=== PATIENT | male | born 1965 | race American Indian/Alaskan Native ===

== ENCOUNTER 2018-07-08 09:40 | Emergency (ER) | payer SELFPAY ==
[2018-07-08 09:48] VITALS: BP 142/108
--- NOTE | 2018-07-08 10:24 | Emergency Department Report ---
<MARVINViolaONIEL Camara - Last Filed: 07/08/18 10:17> ED Headache HPI - General Chief Complaint: Headache Stated Complaint: HEADACHE Time Seen by Provider: 07/08/18 09:53 Source: patient Exam Limitations: no limitations - History of Present Illness Initial Comments: 53-year-old male with a history of migraine headaches presents with headache, he denies any trauma, falls or injuries to the head. Timing/Duration: constant Quality: mild, achy, throbbing Head Injury Location: frontal, temporal Recent Head Trauma: no recent headache/trauma, chronic headaches Modifying Factors: improves with: medication Associated Symptoms: denies: confusion, fatigue, facial pain, loss of consciousness, nausea/vomiting, nasal congestion, stiff neck Allergies/Adverse Reactions: Allergies No Known Allergies Allergy (Unverified 07/08/18 09:44) Home Medications: Ambulatory Orders Butalb/Acetamin/Caff 50-325-40 [Fioricet] 1 tab PO Q6HR PRN #10 tab 07/08/18 ED Review of Systems Comment: All other systems reviewed and negative ED Past Medical Hx - Past Medical History Hx Headaches / Migraines: Yes Hx Seizures: Yes Hx Asthma: Yes Additional medical history: CHRONIC BILAT FOOT PAIN - Social History Smoking Status: Current Every Day Smoker Substance Use Type: Alcohol - Medications Home Medications: Home Medications Medication Instructions Recorded Confirmed Last Taken Type Butalb/Acetamin/Caff 50-325-40 1 tab PO Q6HR PRN #10 tab 07/08/18 Unknown Rx [Fioricet] ED Physical Exam - General Limitations: No Limitations General appearance: alert, in no apparent distress - Head Head exam: Present: atraumatic, normocephalic - Eye Eye exam: Present: normal appearance - ENT ENT exam: Present: mucous membranes moist - Neck Neck exam: Present: normal inspection - Respiratory Respiratory exam: Present: normal lung sounds bilaterally. Absent: respiratory distress - Cardiovascular Cardiovascular Exam: Present: regular rate, normal rhythm. Absent: systolic murmur, diastolic murmur, rubs, gallop - GI/Abdominal GI/Abdominal exam: Present: soft, normal bowel sounds - Rectal Rectal exam: Present: deferred - Extremities Exam Extremities exam: Present: normal inspection - Back Exam Back exam: Present: normal inspection - Neurological Exam Neurological exam: Present: alert, oriented X3, normal gait (with walking stick). Absent: reflexes normal - Expanded Neurological Exam Expanded Patient oriented to: Present: person, place, time Cranial nerves: EOM's Intact: Normal, Facial Sensation: Normal Cerebellar function: Finger to Nose: Normal Sensory exam: Upper Extremity Light Touch: Normal, Lower Extremity Light Touch: Normal Motor strength exam: RUE: 5 Best Eye Response ([place]): (4) open spontaneously Best Motor Response ([place]): (6) obeys commands Best Verbal Response ([place]): (5) oriented [place] Total: 15 - Psychiatric Psychiatric exam: Present: normal affect, normal mood - Skin Skin exam: Present: warm, dry, intact, normal color. Absent: rash ED Medical Decision Making - Radiology Data Radiology results: report reviewed, image reviewed Referring Physician: PEDRO WONG Patient Name: ANTIONETTE WILSON Date of : 1965 Sex: Male Report Date: 2018-07-08 Report Status: [place] [address] Cat Scan Report Signed Patient: ANTIONETTE WILSON MR#: [id number] : 1965 Acct:[id number] Age/Sex: 53 / M ADM Date: 07/08/18 Loc: ED Attending Dr: Ordering Physician: NADEEM FERNANDEZ Date of Service: 07/08/18 Procedure(s): CT head/brain wo con Accession Number(s): [id number] cc: NADEEM FERNANDEZ CT HEAD WITHOUT CONTRAST: HISTORY: Headache. TECHNIQUE: Sequential CT images without contrast. FINDINGS: Images obtained show bilateral prominence of the sulci and ventricles. There are no abnormal intra- or extra-axial blood or fluid collections. There are no focal masses or evidence of mass effect. The mina white matter differentiation appears within normal limits. Regions of periventricular decreased attenuation are consistent with microangiopathic ischemic disease. The posterior fossa structures including the fourth ventricle, cerebellum, and brainstem appear normal. IMPRESSION: Evidence of atrophy and microangiopathic ischemic disease. No acute intracranial process noted. Transcribed By: TTR Dictated By: BITA VANCE JR, MD Electronically Authenticated By: BITA VANCE JR, MD Signed Date/Time: 07/08/18 1040 - Medical Decision Making 53-year-old male presents with a migraine headache CT scan shows no abnormal findings Patient received Toradol for pain in the ED Discussed the follow up with primary care physician. Patient is in no acute distress. ED Disposition Clinical Impression: Migraine headache without aura Qualifiers: Status migrainosus presence: without status migrainosus Intractability: not intractable Qualified Code(s): G43.009 - Migraine without aura, not intractable, without status migrainosus Disposition: DC- TO HOME OR SELFCARE Is pt being admited?: No Does the pt Need Aspirin: No Condition: Stable Instructions: Migraine Headache (ED) Additional Instructions: Make sure to follow up with the primary care physician as discussed. Take all your medications as you've been prescribed. If you have any worsening symptoms or develop new symptoms please return to ED immediately. Prescriptions: Butalb/Acetamin/Caff 50-325-40 [Fioricet] 1 tab PO Q6HR PRN #10 tab PRN Reason: Headache Referrals: MATTIE KRAUSE MD [Primary Care Provider] - 3-5 Days Forms: Work/School Release Form(ED) Time of Disposition: 10:54 <JIA PETE - Last Filed: 07/08/18 11:11> ED Review of Systems ROS: Stated complaint: HEADACHE Other details as noted in HPI ED Course Vital Signs 07/08/18 09:46 Temperature 97.8 F Pulse Rate 70 Respiratory 18 Rate Blood Pressure 142/108 [Right] O2 Sat by Pulse 100 Oximetry ED Medical Decision Making - Medical Decision Making Patient is a 53-year-old male who is presenting with headache. [id number] was done by me. Patient does show some drug-seeking type behavior. Patient states he normally goes to [place] for his care. Patient has CT is within normal limits be discharged home. Critical care attestation.: If time is entered above; I have spent that time in minutes in the direct care of this critically ill patient, excluding procedure time.
[2018-07-08] MEDS ORDERED: TORADOL IM ONE (10:27)
--- NOTE | 2018-07-08 10:44 | Cat Scan Report ---
CT HEAD WITHOUT CONTRAST: HISTORY: Headache. TECHNIQUE: Sequential CT images without contrast. FINDINGS: Images obtained show bilateral prominence of the sulci and ventricles. There are no abnormal intra- or extra-axial blood or fluid collections. There are no focal masses or evidence of mass effect. The mina white matter differentiation appears within normal limits. Regions of periventricular decreased attenuation are consistent with microangiopathic ischemic disease. The posterior fossa structures including the fourth ventricle, cerebellum, and brainstem appear normal. IMPRESSION: Evidence of atrophy and microangiopathic ischemic disease. No acute intracranial process noted.
== END 2018-07-08 11:15 | disposition home or self-care (01) ==
LOC: ED 09:40
DX: G43.009 Migraine without aura, not intractable, without status migrainosus (principal); J45.909 Unspecified asthma, uncomplicated; F17.200 Nicotine dependence, unspecified, uncomplicated
CPT/HCPCS: 70450; 96372; 99284; J1885

== ENCOUNTER 2019-07-07 09:34 | Emergency (ER) | payer SELFPAY ==
[2019-07-07] MEDS ORDERED: KETOROLAC 30 MG/1 ML INJ IM ONE (14:03)
[2019-07-07] MEDS ORDERED: ONDANSETRON 4 MG ODT TAB PO ONE (14:03)
--- NOTE | 2019-07-07 14:05 | Emergency Department Report ---
{null, ED Headache HPI - General Chief Complaint: Headache Stated Complaint: MIGRAINES Time Seen by Provider: 07/07/19 12:46 Source: patient, RN notes reviewed Exam Limitations: no limitations - History of Present Illness Initial Comments: This is a 54-year-old -[place] male who presents to the emergency room with a headache. Past medical history of migraines, seizure, and asthma. Patient reports pain is worse with sitting up or standing. Denies taking any medication prior to arrival. States "this is my normal headache". Denies visual changes, fever, chills, weakness, numbness or tingling. Timing/Duration: 24 hours Quality: severe, throbbing Head Injury Location: global Recent Head Trauma: no recent headache/trauma, frequent headaches Modifying Factors: improves with: movement Associated Symptoms: denies symptoms Allergies/Adverse Reactions: Allergies No Known Allergies Allergy (Unverified 07/08/18 09:44) Home Medications: Ambulatory Orders Butalb/Acetamin/Caff 50-325-40 [Fioricet 50-325-40] 1 tab PO Q6HR PRN #10 tab 07/08/18 Butalb/Acetaminophen/Caffeine [Fioricet 50-300-40 mg CAP] 1 cap PO Q8HR PRN #12 cap 07/07/19 ED Review of Systems ROS: Stated complaint: MIGRAINES Other details as noted in HPI Constitutional: denies: chills, fever Respiratory: denies: cough, shortness of breath, wheezing Cardiovascular: denies: chest pain, palpitations Gastrointestinal: denies: abdominal pain, nausea, diarrhea Musculoskeletal: denies: back pain, joint swelling, arthralgia Skin: denies: rash, lesions Neurological: headache. denies: weakness, paresthesias Psychiatric: denies: anxiety, depression ED Past Medical Hx - Past Medical History Hx Headaches / Migraines: Yes Hx Seizures: Yes Hx Asthma: Yes Additional medical history: CHRONIC BILAT FOOT PAIN - Surgical History Past Surgical History?: No - Social History Smoking Status: Never Smoker - Medications Home Medications: Home Medications Medication Instructions Recorded Confirmed Last Taken Type Butalb/Acetamin/Caff 50-325-40 1 tab PO Q6HR PRN #10 tab 07/08/18 Unknown Rx [Fioricet 50-325-40] Butalb/Acetaminophen/Caffeine 1 cap PO Q8HR PRN #12 cap 07/07/19 Unknown Rx [Fioricet 50-300-40 mg CAP] ED Physical Exam - General Limitations: No Limitations General appearance: alert, in no apparent distress - Eye Eye exam: Present: normal appearance - ENT ENT exam: Present: normal orophraynx, mucous membranes moist, TM's normal bilaterally, normal external ear exam - Neck Neck exam: Present: normal inspection - Respiratory Respiratory exam: Present: normal lung sounds bilaterally. Absent: respiratory distress - Cardiovascular Cardiovascular Exam: Present: regular rate, normal rhythm. Absent: systolic murmur, diastolic murmur, rubs, gallop - GI/Abdominal GI/Abdominal exam: Present: soft, normal bowel sounds. Absent: distended, tenderness, guarding, rebound, rigid - Extremities Exam Extremities exam: Present: normal inspection - Neurological Exam Neurological exam: Present: alert, oriented X3 - Psychiatric Psychiatric exam: Present: normal affect, normal mood - Skin Skin exam: Present: warm, dry, intact, normal color. Absent: rash ED Course Vital Signs 07/07/19 09:45 Temperature 97.5 F L Pulse Rate 74 Respiratory 18 Rate Blood Pressure 151/114 [Right] O2 Sat by Pulse 98 Oximetry ED Medical Decision Making - Medical Decision Making This is a 54 y.o. male that presents with migraine headache. History of migraines, seizures, and asthma. Patient is stable and was examined by me. No neuro symptoms. Given toradol and Zofran. Monitored for 2 hours. Patient reports improved symptoms. Start Fioricet. No further questions noted by the patient. Follow-up with primary care doctor. Referral to neurology as needed for worsening symptoms. Discharged home in stable condition. Follow up with PCP in 24-72 hours. Critical care attestation.: If time is entered above; I have spent that time in minutes in the direct care of this critically ill patient, excluding procedure time. ED Disposition Clinical Impression: Migraine Qualifiers: Migraine type: without aura Status migrainosus presence: with status migrainosus Intractability: not intractable Qualified Code(s): G43.001 - Migraine without aura, not intractable, with status migrainosus Disposition: - TO HOME OR SELFCARE Is pt being admited?: No Condition: Stable Instructions: Migraine Headache (ED) Additional Instructions: Take medication at start of headache. Moderate caffeine intake. Eat at scheduled times or 3 meals a day with snacks. Follow up with primary care provider in 24-72 hours. Prescriptions: Butalb/Acetaminophen/Caffeine [Fioricet 50-300-40 mg CAP] 1 cap PO Q8HR PRN #12 cap PRN Reason: Headache Referrals: [facility] [Outside] - 3-5 Days [facility] [Outside] - 3-5 Days [facility] [Outside] - 3-5 Days [facility] [Provider Group] - 3-5 Days Time of Disposition: 15:03 }
[2019-07-07 16:03] VITALS: BP 135/107
== END 2019-07-07 17:40 | disposition home or self-care (01) ==
LOC: ED 09:34
DX: G43.909 Migraine, unspecified, not intractable, without status migrainosus (principal); R56.9 Unspecified convulsions; J45.909 Unspecified asthma, uncomplicated; Z79.899 Other long term (current) drug therapy
CPT/HCPCS: 96372; 99282; J1885; Q0162

== ENCOUNTER 2020-03-26 20:31 | Emergency (ER) | payer MEDICAID ==
--- NOTE | 2020-03-26 20:49 | Emergency Department Report ---
ED Seizure HPI - General Stated Complaint: SEIZURE Time Seen by Provider: 03/26/20 20:41 Source: patient, EMS, old records reviewed Mode of arrival: Stretcher Limitations: No Limitations - History of Present Illness Initial Comments: Chief complaint: "Seizure" HPI: This is a 54-year-old male with history of seizure, migraine headache and CAD status post CABG who presents with EMS via EMS after 4-minute long witnessed seizure. Patient has mild typical headache. Dull achy global. Patient has frequent headaches. He has had similar headaches. He last took Dilantin 1 to 2 days ago. He ran out of this medication. His brush hand and PCP are located in [place]. He denies any injury from the surgery as a result of the seizure. MD Complaint: seizure -: Sudden, This evening Witnessed:: Yes Trauma: No Seizure History: known seizure disorder Place: home Possible Precipitating Event: medication (Lack of medication) Associated Symptoms: other (Mild headache) Treatments Prior to Arrival: none - Related Data Previous Rx's Medication Instructions Recorded Last Taken Type Butalb/Acetamin/Caff 50-325-40 1 tab PO Q6HR PRN #10 tab 07/08/18 Unknown Rx [Fioricet 50-325-40] Butalb/Acetaminophen/Caffeine 1 cap PO Q8HR PRN #12 cap 07/07/19 Unknown Rx [Fioricet 50-300-40 mg CAP] Phenytoin [Dilantin] 3 tab PO QHS #90 capsule 03/26/20 Unknown Rx Allergies Allergy/AdvReac Type Severity Reaction Status Date / Time No Known Allergies Allergy Verified 03/26/20 20:56 ED Review of Systems ROS: Stated complaint: SEIZURE Other details as noted in HPI Comment: All other systems reviewed and negative Constitutional: denies: fever, malaise Respiratory: denies: cough Cardiovascular: denies: chest pain Gastrointestinal: denies: abdominal pain, nausea, vomiting Neurological: headache. denies: weakness, numbness, paresthesias, confusion ED Past Medical Hx - Past Medical History Previous Medical History?: Yes Hx Headaches / Migraines: Yes Hx Seizures: Yes Hx Asthma: Yes Additional medical history: CHRONIC BILAT FOOT PAIN - Surgical History Past Surgical History?: Yes Additional Surgical History: CABG at [facility] - Social History Smoking Status: Never Smoker - Medications Home Medications: Home Medications Medication Instructions Recorded Confirmed Last Taken Type Butalb/Acetamin/Caff 50-325-40 1 tab PO Q6HR PRN #10 tab 07/08/18 Unknown Rx [Fioricet 50-325-40] Butalb/Acetaminophen/Caffeine 1 cap PO Q8HR PRN #12 cap 07/07/19 Unknown Rx [Fioricet 50-300-40 mg CAP] Phenytoin [Dilantin] 3 tab PO QHS #90 capsule 03/26/20 Unknown Rx ED Physical Exam - General Limitations: No Limitations General appearance: alert, in no apparent distress - Head Head exam: Present: atraumatic, normocephalic - Eye Eye exam: Present: normal appearance - ENT ENT exam: Present: mucous membranes moist - Neck Neck exam: Present: normal inspection, full ROM - Respiratory Respiratory exam: Present: normal lung sounds bilaterally. Absent: respiratory distress, wheezes, rales, rhonchi - Cardiovascular Cardiovascular Exam: Present: regular rate, normal rhythm, normal heart sounds, other (Sternotomy scar present). Absent: systolic murmur, diastolic murmur, rubs, gallop - GI/Abdominal GI/Abdominal exam: Present: soft, normal bowel sounds. Absent: distended, tenderness, guarding, rebound - Rectal Rectal exam: Present: deferred - Extremities Exam Extremities exam: Present: normal inspection - Neurological Exam Neurological exam: Present: alert, oriented X3 - Psychiatric Psychiatric exam: Present: normal affect, normal mood - Skin Skin exam: Present: warm, dry, intact, normal color. Absent: rash ED Course Vital Signs 03/26/20 03/26/20 03/26/20 20:45 20:58 21:03 Temperature 98.7 F Pulse Rate 75 Respiratory 17 18 18 Rate Blood Pressure 127/89 [Left] O2 Sat by Pulse 98 Oximetry 03/26/20 03/26/20 21:58 22:03 Temperature Pulse Rate Respiratory 18 18 Rate Blood Pressure [Left] O2 Sat by Pulse Oximetry ED Medical Decision Making - Medical Decision Making Breakthrough seizure history of seizure disorder. Patient may have missed doses of his medication Dilantin. Patient received IV Keppra load. Observed for 3 hours in the emergency department without change mental status or recurrent seizure. He does not have injury related to seizure. Mild headache typical for patient. History of migraine headaches. Patient was treated for headache in the emergency department with IV and p.o. meds I have prescribed 90-day supply of Dilantin. Critical care attestation.: If time is entered above; I have spent that time in minutes in the direct care of this critically ill patient, excluding procedure time. ED Disposition Clinical Impression: Breakthrough seizure, Seizure disorder Disposition: TO HOME OR SELFCARE Is pt being admited?: No Does the pt Need Aspirin: No Condition: Stable Instructions: Epilepsy, [id number] Prescriptions: Phenytoin [Dilantin] 3 tab PO QHS #90 capsule Referrals: XANDER RAMIREZ MD [Staff Physician] - 3-5 Days
[2020-03-26] MEDS ORDERED: IBUPROFEN 600 MG TAB PO ONE (20:54)
[2020-03-26] MEDS ORDERED: HYDROcodone/ACETAMINOPHEN 5-325 MG TAB PO ONE (20:54)
[2020-03-26] MEDS ORDERED: dexAMETHasone 4 MG/ML VIAL IV ONE (20:54)
[2020-03-26] MEDS ORDERED: levETIRAcetam 1000 MG/NS 0.75% 1,000 MG/100 ML BAG IV ONE (20:54)
[2020-03-26 23:28] VITALS: BP 112/77
== END 2020-03-26 23:20 | disposition home or self-care (01) ==
LOC: ED 20:31
DX: G40.909 Epilepsy, unspecified, not intractable, without status epilepticus (principal); G43.909 Migraine, unspecified, not intractable, without status migrainosus; J45.909 Unspecified asthma, uncomplicated; Z79.899 Other long term (current) drug therapy
CPT/HCPCS: 96374; 96375; 99284; J1100; J1953

== ENCOUNTER 2021-04-17 07:51 | Emergency (ER) | payer MEDICAID ==
[2021-04-17] MEDS ORDERED: SODIUM CHLORIDE 0.9% 1000 ML 1,000 ML IV ONE (08:10)
--- NOTE | 2021-04-17 08:10 | Emergency Department Report ---
ED Seizure HPI - General Stated Complaint: SEIZURE Time Seen by Provider: 04/17/21 08:09 - History of Present Illness Initial Comments: Patient was brought in because of a seizure. EMS transported the patient. Family called in and found the patient seizing. This onset was not witnessed. Total duration of time is unknown. EMS states that the patient quit seizing and seemed to be postictal for them. There was no history of trauma as reported by family per EMS. Patient is on seizure medication. They are uncertain if he is taking it. He has been confused for them. To me, the patient states that he has been taking his medication. He initially states that it was Depakote. He then states that was Dilantin. He cannot be sure which medicine he is on. Patient denies recent head trauma. He has no fevers or chills. There is no cough or congestion. - Related Data Previous Rx's Medication Instructions Recorded Last Taken Type Butalb/Acetamin/Caff 50-325-40 1 tab PO Q6HR PRN #10 tab 07/08/18 Unknown Rx [Fioricet 50-325-40] Butalb/Acetaminophen/Caffeine 1 cap PO Q8HR PRN #12 cap 07/07/19 Unknown Rx [Fioricet 50-300-40 mg CAP] Phenytoin [Dilantin] 3 tab PO QHS #90 capsule 03/26/20 Unknown Rx Allergies Allergy/AdvReac Type Severity Reaction Status Date / Time No Known Allergies Allergy Verified 03/26/20 20:56 ED Review of Systems ROS: Stated complaint: SEIZURE Other details as noted in HPI Comment: All other systems reviewed and negative Constitutional: denies: fever Eyes: denies: vision change ENT: denies: throat pain Respiratory: denies: cough Cardiovascular: denies: chest pain Endocrine: denies: unexplained weight loss Gastrointestinal: denies: abdominal pain Genitourinary: denies: dysuria Musculoskeletal: denies: back pain Skin: denies: rash Neurological: as per HPI Hematological/Lymphatic: denies: easy bruising ED Past Medical Hx - Past Medical History Hx Headaches / Migraines: Yes Hx Seizures: Yes Hx Asthma: Yes Additional medical history: CHRONIC BILAT FOOT PAIN - Surgical History Additional Surgical History: CABG at [facility] - Family History Family history: no significant - Social History Substance Use Type: Alcohol - Medications Home Medications: Home Medications Medication Instructions Recorded Confirmed Last Taken Type Butalb/Acetamin/Caff 50-325-40 1 tab PO Q6HR PRN #10 tab 07/08/18 Unknown Rx [Fioricet 50-325-40] Butalb/Acetaminophen/Caffeine 1 cap PO Q8HR PRN #12 cap 07/07/19 Unknown Rx [Fioricet 50-300-40 mg CAP] Phenytoin [Dilantin] 3 tab PO QHS #90 capsule 03/26/20 Unknown Rx ED Physical Exam - General Limitations: Altered Mental Status (Postictal), Other (Pulse ox noted and normal) General appearance: alert, in no apparent distress - Head Head exam: Present: atraumatic, normocephalic, normal inspection - Eye Eye exam: Present: normal appearance, PERRL, EOMI. Absent: scleral icterus - ENT ENT exam: Present: normal exam, mucous membranes moist, normal external ear exam, other (Bruising to the tongue from biting) - Neck Neck exam: Present: normal inspection. Absent: meningismus - Respiratory Respiratory exam: Present: normal lung sounds bilaterally. Absent: respiratory distress - Cardiovascular Cardiovascular Exam: Present: regular rate, normal rhythm - GI/Abdominal GI/Abdominal exam: Present: soft. Absent: distended - Extremities Exam Extremities exam: Present: normal capillary refill - Back Exam Back exam: Absent: CVA tenderness (R), CVA tenderness (L) - Neurological Exam Neurological exam: Present: alert, altered (Confused and postictal), CN II-XII intact, normal gait, reflexes normal. Absent: motor sensory deficit - Psychiatric Psychiatric exam: Present: normal affect, normal mood - Skin Skin exam: Present: warm, dry ED Course Vital Signs 04/17/21 04/17/21 04/17/21 08:00 10:36 10:45 Temperature 97.4 F L Pulse Rate 117 H 73 77 Respiratory 18 16 16 Rate Blood Pressure 140/111 Blood Pressure 181/126 [Right] O2 Sat by Pulse 96 95 Oximetry 04/17/21 04/17/21 04/17/21 11:45 12:09 12:15 Temperature Pulse Rate Respiratory Rate Blood Pressure 157/102 157/116 157/116 Blood Pressure [Right] O2 Sat by Pulse 78 L 75 L Oximetry 04/17/21 04/17/21 04/17/21 12:31 12:45 13:12 Temperature Pulse Rate 71 Respiratory 16 Rate Blood Pressure 157/116 147/111 Blood Pressure [Right] O2 Sat by Pulse 97 98 Oximetry - Reevaluation(s) Reevaluation #1: 04/17/21 07:29 Patient was seen by EMS upon arrival. IV and labs were ordered once the patient was registered. Old records reviewed. Reevaluation #2: 04/17/21 10:34 Labs have been noted. Dilantin level was added on. Reevaluation #3: 04/17/21 12:52 Patient is still confused and altered. He is getting out of the bed. He keeps complained of a headache. CT was ordered. Reevaluation #4: 04/17/21 13:55 CT is noted. Dilantin level is pending. I have called the lab and they said there will be at least 1 to 2 hours as they were doing maintenance on the equip ment. Reevaluation #5: 04/17/21 14:05 Patient is now awake and conversant. He has no complaint. Dilantin level would not actually change over so the patient was discharged. ED Medical Decision Making - Lab Data Result diagrams: 04/17/21 09:26 Rhythm strip: Normal sinus rhythm without ectopy. Monitor observe 10 seconds. - Radiology Data Radiology results: report reviewed - Medical Decision Making Patient presented with breakthrough seizure. Etiology for this is not known. There is no profound electrolyte derangement that would account for it. He does not have had trauma visualized or reported that would account for this. He has no meningeal signs of suggest infectious pathology. His laboratory studies have been noted. He can be treated symptomatically and referred to his own neurologist for follow-up. It is unlikely that his Dilantin toxic. However he could be subtherapeutic. This can be followed and referred based on phone call. There is no CT evidence of bleed or trauma. He is awake and conversant at t his time. Critical Care Time: No Critical care attestation.: If time is entered above; I have spent that time in minutes in the direct care of this critically ill patient, excluding procedure time. ED Disposition Clinical Impression: Breakthrough seizure Disposition: 01 HOME / SELF CARE / HOMELESS Is pt being admited?: No Condition: Stable Instructions: Seizure, Adult Additional Instructions: Continue your home medication. Drink plenty water. Avoid caffeine and other stimulants. Follow-up with your regular doctor and your neurologist for recheck. If you do not have a family physician, follow-up with the referral physician. Referrals: PRIMARY CARE, [Primary Care Provider] - 3-5 Days CYNTHIA SIMS MD [Staff Physician] - 3-5 Days
[2021-04-17 10:02] LABS: Blood Urea Nitrogen 10 mg/dL (9-20); Calcium 9.2 mg/dL (8.4-10.2); Hemolysis Index 21
[2021-04-17 10:03] LABS: BUN/Creatinine Ratio 17
[2021-04-17] MEDS ORDERED: ACETAMINOPHEN 500 MG TAB PO ONE (11:14)
[2021-04-17] MEDS ORDERED: fentaNYL 100 MCG/2 ML INJ IV ONE (12:50)
--- NOTE | 2021-04-17 13:19 | Cat Scan Report ---
CT HEAD WITHOUT CONTRAST INDICATION / CLINICAL INFORMATION: Seizure, altered mental status. TECHNIQUE: Axial imaging performed from the skull apex through the skull base without the use of cont rast. Sagittal and coronal reformatted images. All CT scans at this location are performed using CT dose reduction for ALARA by means of automated exposure control. COMPARISON: 07/08/2018 FINDINGS: CEREBRAL PARENCHYMA: Mild diffuse cortical volume loss and moderate nonspecific chronic ischemic doan ges in the white matter are again noted. Chronic white matter changes appear slightly advanced for th is person age. No evidence for mass, edema or acute parenchymal abnormality. HEMORRHAGE: None. EXTRA-AXIAL SPACES: Normal in size and morphology for the patient's age. VENTRICULAR SYSTEM: Normal in size and morphology for the patient's age. MIDLINE SHIFT OR HERNIATION: None. CEREBELLUM / BRAINSTEM: No significant abnormality. CALVARIUM: No significant abnormality. Chronic appearing left nasal bone deformity is noted. ORBITS: Normal as visualized. PARANASAL SINUSES / MASTOID AIR CELLS: Normal as visualized. SOFT TISSUES of HEAD: No significant abnormality. ADDITIONAL FINDINGS: None. IMPRESSION: No acute intracranial abnormality. Mild volume loss and nonspecific chronic white matter changes. No significant change since 07/08/2018. Signer Name: Maikel Carlton Jr, MD Signed: 04/17/2021 1:14 PM Workstation Name: [id number]
[2021-04-17 16:12] VITALS: BP 153/97
== END 2021-04-17 16:12 | disposition home or self-care (01) ==
LOC: ED 07:51
DX: R56.9 Unspecified convulsions (principal); G43.909 Migraine, unspecified, not intractable, without status migrainosus; J45.909 Unspecified asthma, uncomplicated; Z72.89 Other problems related to lifestyle; Z79.899 Other long term (current) drug therapy
CPT/HCPCS: 36415; 70450; 80048; 80164; 80185; 83735; 96361; 96374; 99284; J1953; J3010; J7030; Q0162

== ENCOUNTER 2021-04-17 18:36 | Emergency (ER) | payer MEDICAID ==
[2021-04-17] MEDS ORDERED: levETIRAcetam 1000 MG/NS 0.75% 1,000 MG/100 ML BAG IV ONE ×2 (19:15→22:36)
[2021-04-17] MEDS ORDERED: HYDROcodone/ACETAMINOPHEN 5-325 MG TAB PO ONE (22:03)
--- NOTE | 2021-04-17 23:06 | Emergency Department Report ---
ED Seizure HPI - General Chief Complaint: Seizure Stated Complaint: SEIZURE Time Seen by Provider: 04/17/21 19:14 Source: EMS Mode of arrival: Wheelchair Limitations: No Limitations - History of Present Illness Initial Comments: Chief complaint: Seizure headache HPI: This is a 55-year-old male history of migraine headache and and seizure. Patient was evaluated at this emergency department earlier today. He was discharged approximately 4 PM. He returns to emergency department with recurrent seizure. He is now awake alert appropriate. He has "migraine headache". He has these types of headaches almost daily. Headache is typical for patient. He states that he has seizures every other day. He takes Dilantin. No trauma from the seizure. MD Complaint: seizure -: This afternoon Trauma: No Seizure History: known seizure disorder Place: home Possible Precipitating Event: none Associated Symptoms: other ("Migraine") Treatments Prior to Arrival: other (EMS transport) - Related Data Previous Rx's Medication Instructions Recorded Last Taken Type Butalb/Acetamin/Caff 50-325-40 1 tab PO Q6HR PRN #10 tab 07/08/18 Unknown Rx [Fioricet 50-325-40] Butalb/Acetaminophen/Caffeine 1 cap PO Q8HR PRN #12 cap 07/07/19 Unknown Rx [Fioricet 50-300-40 mg CAP] Phenytoin [Dilantin] 3 tab PO QHS #90 capsule 03/26/20 Unknown Rx Phenytoin [Dilantin] 3 tab PO QHS #90 capsule 04/17/21 Unknown Rx Allergies Allergy/AdvReac Type Severity Reaction Status Date / Time No Known Allergies Allergy Verified 04/17/21 21:59 ED Review of Systems ROS: Stated complaint: SEIZURE Other details as noted in HPI Comment: All other systems reviewed and negative Constitutional: denies: chills, fever, malaise Respiratory: denies: cough, shortness of breath Cardiovascular: denies: chest pain Gastrointestinal: denies: abdominal pain, nausea, vomiting Neurological: headache ED Past Medical Hx - Past Medical History Previous Medical History?: Yes Hx Headaches / Migraines: Yes Hx Seizures: Yes Hx Asthma: Yes Additional medical history: CHRONIC BILAT FOOT PAIN - Surgical History Past Surgical History?: Yes Additional Surgical History: CABG at [facility] - Social History Substance Use Type: Alcohol - Medications Home Medications: Home Medications Medication Instructions Recorded Confirmed Last Taken Type Butalb/Acetamin/Caff 50-325-40 1 tab PO Q6HR PRN #10 tab 07/08/18 Unknown Rx [Fioricet 50-325-40] Butalb/Acetaminophen/Caffeine 1 cap PO Q8HR PRN #12 cap 07/07/19 Unknown Rx [Fioricet 50-300-40 mg CAP] Phenytoin [Dilantin] 3 tab PO QHS #90 capsule 03/26/20 Unknown Rx Phenytoin [Dilantin] 3 tab PO QHS #90 capsule 04/17/21 Unknown Rx ED Physical Exam - General Limitations: No Limitations General appearance: alert, in no apparent distress - Head Head exam: Present: atraumatic, normocephalic - Eye Eye exam: Present: normal appearance - ENT ENT exam: Present: mucous membranes moist - Neck Neck exam: Present: normal inspection, full ROM - Respiratory Respiratory exam: Present: normal lung sounds bilaterally. Absent: respiratory distress, wheezes, rales, rhonchi - Cardiovascular Cardiovascular Exam: Present: regular rate, normal rhythm, normal heart sounds. Absent: systolic murmur, diastolic murmur, rubs, gallop - GI/Abdominal GI/Abdominal exam: Present: soft, normal bowel sounds - Rectal Rectal exam: Present: deferred - Extremities Exam Extremities exam: Present: normal inspection - Back Exam Back exam: Present: normal inspection - Neurological Exam Neurological exam: Present: alert, oriented X3, normal gait - Expanded Neurological Exam Expanded Patient oriented to: Present: person, place, time Motor strength exam: RUE: 5, LUE: 5, RLE: 5, LLE: 5 Best Eye Response (Esau): (4) open spontaneously Best Motor Response (Esau): (6) obeys commands Best Verbal Response (Esau): (5) oriented [place] Total: 15 - Psychiatric Psychiatric exam: Present: normal affect, normal mood - Skin Skin exam: Present: warm, dry, intact, normal color. Absent: rash ED Course Vital Signs 04/17/21 04/17/21 21:48 22:40 Temperature 98.5 F Pulse Rate 90 Respiratory 18 18 Rate Blood Pressure 169/115 [Left] O2 Sat by Pulse 98 Oximetry ED Medical Decision Making - Medical Decision Making Breakthrough seizure, history of seizure disorder. Patient GCS 15 upon arrival. Awake alert ambulatory. Received Keppra load. Prescribed Dilantin. Referred to neurologist. Critical care attestation.: If time is entered above; I have spent that time in minutes in the direct care of this critically ill patient, excluding procedure time. ED Disposition Clinical Impression: Breakthrough seizure Disposition: 01 HOME / SELF CARE / HOMELESS Is pt being admited?: No Does the pt Need Aspirin: No Condition: Stable Instructions: Seizure, Adult, [id number] Prescriptions: Phenytoin [Dilantin] 3 tab PO QHS #90 capsule Referrals: PRANEETH PARR MD [Referring] - 3-5 Days
[2021-04-17 23:58] VITALS: BP 158/99
== END 2021-04-17 23:58 | disposition home or self-care (01) ==
LOC: ED 18:36
DX: G40.909 Epilepsy, unspecified, not intractable, without status epilepticus (principal); G43.909 Migraine, unspecified, not intractable, without status migrainosus; J45.909 Unspecified asthma, uncomplicated; Z98.890 Other specified postprocedural states
CPT/HCPCS: J1953